=== PATIENT | male | born 1965 | race Two or more races ===

== ENCOUNTER 2023-06-02 11:51 | Inpatient (IN) | payer MEDICAID, OTHER ==
[~2023-06-02] VITALS: Ht 175.3 cm; Wt 116.0 kg
[2023-06-02] MEDS ORDERED: KETOROLAC TROMETH 60MG/2ML VIAL IM ONE (12:30)
[2023-06-02] MEDS ORDERED: TAMSULOSIN HYDROCHLORIDE 0.4 MG CAP PO ONE ×2 (12:30→15:00)
[2023-06-02] MEDS ORDERED: PROCHLORPERAZINE EDISYLATE 5 MG/ML 2ML VIAL IM ONE (12:30)
[2023-06-02 13:14] LABS: Basophils # (auto) 0 10 ^3/uL (0-0.2); Basophils % (auto) 0.3 % (0.0-2.0); Eosinophils # (auto) 0 10 ^3/uL (0-0.8); Eosinophils % (auto) 0.2 % (0.0-7.0); Hematocrit 37.5 % (41.0-53.0); Hemoglobin 12.5 g/dL (13.5-17.5); Lymphocytes # (auto) 0.7 10 ^3/uL (0.4-5.4); Lymphocytes % (auto) 8.3 % (10.0-50.0); Mean Corpuscular Hemoglobin 30.8 pg (28.0-32.0); Mean Corpuscular Hgb Conc. 33.2 g/dL (32.0-36.0); Mean Corpuscular Volume 92.8 fL (80.0-100.0); Monocytes # (auto) 0.6 10 ^3/uL (0-1.3); Monocytes % (auto) 7.4 % (0.0-12.0); Neutrophils % (auto) 83.8 % (37.0-80.0); Red Blood Cells 4.05 10^6/uL (4.5-5.90); Red Cell Distribution Width 14.7 % (11.8-14.3); White Blood Cell 8.3 10^3/uL (4.4-10.8)
[2023-06-02 13:26] LABS: Alanine Aminotransferase 47 U/L (7-40); Alkaline Phosphatase 155 U/L (46-116); Calcium 8.6 mg/dL (8.7-10.4); Carbon Dioxide 26 mmol/L (20-30); Chloride 107 mmol/L (98-107); Glucose 116 mg/dL (74-106); Lipase 31 U/L (12-53); Potassium 4.5 mmol/L (3.5-5.1); Sodium 139 mmol/L (136-145)
[2023-06-02 13:27] LABS: Albumin 3.8 g/dL (3.2-4.8); Anion Gap 6 (5-15); Aspartate Aminotransferase 30 U/L (13-40); BUN/Creatinine Ratio 11.6 (10.0-20.0); Bilirubin, Total 1.1 mg/dL (0.2-1.0); Blood Urea Nitrogen 20 mg/dL (9-23); Total Protein 6.2 g/dL (5.7-8.2)
[2023-06-02 16:22] VITALS: PULSE 85; RESP 22; O2SAT 100
[2023-06-02] MEDS ORDERED: SODIUM CHLORIDE 0.9% 1,000 ML IV ONE (17:00)
[2023-06-02] MEDS ORDERED: ASPirin 81 mg TAB PO ONE (17:00)
[2023-06-02] MEDS ORDERED: ACETAMINOPHEN 325 MG TAB PO PRN (18:30)
[2023-06-02] MEDS ORDERED: ONDANSETRON HCL 4 MG/2 ML VIAL IV PRN (18:30)
[2023-06-02] MEDS ORDERED: ALBUTEROL SULF 2.5 MG/0.5ML(0.5%) NEB SOLN NEB PRN (19:00)
[2023-06-02] MEDS: SODIUM CHLORIDE 0.9% 1,000 ML IV SCH (19:15)
[2023-06-02 19:25] VITALS: O2SAT 98
[2023-06-02 19:30] VITALS: PULSE 80; RESP 14; O2SAT 97
[2023-06-02 19:42] LABS: Base Excess -2.9 mmol/L (-2.0-2.0)
[2023-06-02 19:47] VITALS: BP 134/92; PULSE 83; RESP 18; TEMP 97.7; O2SAT 98
[2023-06-02 20:09] LABS: Triglycerides 90 mg/dL (< 150)
[2023-06-02 20:10] LABS: LDL Cholesterol 54 mg/dL (< 100)
[2023-06-02 20:11] LABS: Cholesterol 103 mg/dL (< 200); HDL Cholesterol 40 mg/dL (40-59)
[2023-06-02] MEDS ORDERED: MANNITOL FTV 25% 12.5 GM/50 ML 50 ML IV ONE (21:00)
[2023-06-03] VITALS (8 sets, daily range): BP systolic 113–125; BP diastolic 71–91; PULSE 72–98; RESP 16–24; TEMP 36.8; O2SAT 94–99
[2023-06-03 04:00] LABS: Urine Bacteria NONE SEEN /hpf (None Seen); Urine Blood Negative /uL (Negative); Urine Clarity Clear (Clear); Urine Color Yellow (Yellow); Urine Mucus FEW (None Seen); Urine Protein, UAD 1+ (Negative); Urine Specific Gravity 1.035 (1.001-1.035); Urine Urobilinogen Normal (Negative); Urine WBC 1 /hpf (0 - 3); Urine pH 5.5 (5.0-8.0)
[2023-06-03] MEDS: HYDROcodone-ACET 7.5/325MG TAB PO PRN ×3 (04:11→16:28)
[2023-06-03 04:18] LABS: Amphetamine Screen, Urine Pos (NEGATIVE); Benzodiazephine Screen, Urine Neg (NEGATIVE)
[2023-06-03 04:19] LABS: Barbiturate Scree,Urine Neg (NEGATIVE); Cannabinoid Screen, Urine Neg (NEGATIVE); Cocaine Screen, Urine Neg (NEGATIVE); Opiate Scree,Urine Neg (NEGATIVE); Phencyclidine Screen, Urine Neg (NEGATIVE)
[2023-06-03] MEDS: SODIUM CHLORIDE 0.9% 1,000 ML IV SCH ×2 (04:51→14:30)
[2023-06-03 05:13] LABS: Basophils # (auto) 0 10 ^3/uL (0-0.2); Basophils % (auto) 0.4 % (0.0-2.0); Eosinophils # (auto) 0.1 10 ^3/uL (0-0.8); Eosinophils % (auto) 0.9 % (0.0-7.0); Hematocrit 35.7 % (41.0-53.0); Hemoglobin 11.9 g/dL (13.5-17.5); Lymphocytes # (auto) 0.7 10 ^3/uL (0.4-5.4); Lymphocytes % (auto) 8.8 % (10.0-50.0); Mean Corpuscular Hemoglobin 30.9 pg (28.0-32.0); Mean Corpuscular Hgb Conc. 33.4 g/dL (32.0-36.0); Mean Corpuscular Volume 92.5 fL (80.0-100.0); Monocytes # (auto) 0.8 10 ^3/uL (0-1.3); Monocytes % (auto) 10.1 % (0.0-12.0); Neutrophils # (auto) 6.4 10 ^3/uL (1.6-8.6); Neutrophils % (auto) 79.8 % (37.0-80.0); Red Blood Cells 3.86 10^6/uL (4.5-5.90); Red Cell Distribution Width 14.4 % (11.8-14.3)
[2023-06-03 05:26] LABS: Alanine Aminotransferase 41 U/L (7-40); Albumin 3.7 g/dL (3.2-4.8); Alkaline Phosphatase 141 U/L (46-116); Anion Gap 2 (5-15); Aspartate Aminotransferase 26 U/L (13-40); BUN/Creatinine Ratio 10.3 (10.0-20.0); Blood Urea Nitrogen 17 mg/dL (9-23); Calcium 8.6 mg/dL (8.7-10.4); Carbon Dioxide 28 mmol/L (20-30); Chloride 106 mmol/L (98-107); Glucose 116 mg/dL (74-106); Potassium 4.5 mmol/L (3.5-5.1); Sodium 136 mmol/L (136-145)
[2023-06-03 05:27] LABS: Total Protein 6.2 g/dL (5.7-8.2)
[2023-06-03] MEDS: ENOXAPARIN SOD 40 MG/0.4 ML SYRINGE SC SCH (10:22)
[2023-06-03 11:42] LABS: Alanine Aminotransferase 41 U/L (7-40); Alkaline Phosphatase 142 U/L (46-116); Anion Gap 3 (5-15); Aspartate Aminotransferase 25 U/L (13-40); Blood Urea Nitrogen 17 mg/dL (9-23); Calcium 8.5 mg/dL (8.7-10.4); Carbon Dioxide 28 mmol/L (20-30); Chloride 106 mmol/L (98-107); Glucose 144 mg/dL (74-106); Potassium 4.9 mmol/L (3.5-5.1); Sodium 137 mmol/L (136-145)
[2023-06-03 11:43] LABS: Albumin 3.7 g/dL (3.2-4.8); Total Protein 6.1 g/dL (5.7-8.2)
[2023-06-03] MEDS ORDERED: ASPI325T4 PO (14:06)
[2023-06-03] MEDS ORDERED: CLOP75TA70 PO (14:21)
[2023-06-03] MEDS ORDERED: ATOR20TA50 PO (14:21)
[2023-06-03] MEDS ORDERED: LISI10TA34 PO (14:21)
[2023-06-03] MEDS ORDERED: POTA-220 PO (14:21)
[2023-06-03] MEDS ORDERED: FURO1TAB31 PO (14:21)
[2023-06-03] MEDS ORDERED: METO25TA93 PO (14:21)
[2023-06-03] MEDS ORDERED: MANNITOL FTV 25% 12.5 GM/50 ML 50 ML IV ONE (14:45)
[2023-06-03] MEDS: TAMSULOSIN HYDROCHLORIDE 0.4 MG CAP PO SCH (18:18)
[2023-06-04] VITALS (9 sets, daily range): BP systolic 126–148; BP diastolic 84–103; PULSE 64–87; RESP 16–20; TEMP 97.2–98.4; O2SAT 92–99
[2023-06-04] MEDS: SODIUM CHLORIDE 0.9% 1,000 ML IV SCH ×3 (00:30→20:30)
[2023-06-04] MEDS: HYDROcodone-ACET 7.5/325MG TAB PO PRN (04:46)
[2023-06-04] MEDS: FUROSEMIDE 40 MG/4 ML VIAL IV SCH ×2 (07:16→18:17)
[2023-06-04] MEDS: PIPERACILLIN-TAZOB 3.375GM 100 ML IV SCH ×2 (07:33→15:46)
[2023-06-04] MEDS: ENOXAPARIN SOD 40 MG/0.4 ML SYRINGE SC SCH (08:54)
[2023-06-04 15:45] LABS: Chloride 105 mmol/L (98-107); Potassium 4.2 mmol/L (3.5-5.1); Sodium 139 mmol/L (136-145)
[2023-06-04 15:46] LABS: Anion Gap 5 (5-15); Calcium 8.4 mg/dL (8.5-10.1); Carbon Dioxide 29 mmol/L (20-30)
[2023-06-04 15:51] LABS: BUN/Creatinine Ratio 7.7 (10.0-20.0); Blood Urea Nitrogen 9 mg/dL (9-23); Glucose 95 mg/dL (74-106)
[2023-06-04] MEDS: TAMSULOSIN HYDROCHLORIDE 0.4 MG CAP PO SCH (18:17)
[2023-06-05] VITALS (8 sets, daily range): BP systolic 104–150; BP diastolic 57–113; PULSE 78–86; RESP 16–18; TEMP 98–99.3; O2SAT 90–95
[2023-06-05] MEDS: PIPERACILLIN-TAZOB 3.375GM 100 ML IV SCH ×3 (01:54→16:00)
[2023-06-05] MEDS: FUROSEMIDE 40 MG/4 ML VIAL IV SCH ×2 (07:01→18:00)
[2023-06-05] MEDS: ENOXAPARIN SOD 40 MG/0.4 ML SYRINGE SC SCH (10:30)
[2023-06-05] MEDS: TAMSULOSIN HYDROCHLORIDE 0.4 MG CAP PO SCH (18:00)
[2023-06-06] MEDS: PIPERACILLIN-TAZOB 3.375GM 100 ML IV SCH
== END 2023-06-06 01:09 | disposition home or self-care (01) | DRG 469 ==
LOC: ER 11:51 → EDBD 11:51 → OVERFLOW 18:29 → EAST 06-03 08:30
PROVIDERS: ADMIT Internal Medicine; ATTEND Student in an Organized Health Care Education/Training Program
DX: N17.0 Acute kidney failure with tubular necrosis (principal); J96.01 Acute respiratory failure with hypoxia; I21.A1 Myocardial infarction type 2; G92.9 Unspecified toxic encephalopathy; I50.43 Acute on chronic combined systolic (congestive) and diastolic (congestive) heart failure; D64.9 Anemia, unspecified; N13.6 Pyonephrosis; I24.9 Acute ischemic heart disease, unspecified; E86.0 Dehydration; I11.0 Hypertensive heart disease with heart failure; F15.10 Other stimulant abuse, uncomplicated; Z87.442 Personal history of urinary calculi; Z59.00 Homelessness unspecified
CPT/HCPCS: 36415; 36600; 71045; 74018; 74176; 76775; 80048; 80053; 80061; 80307; 80320; 81001; 82140; 82805; 82962; 83690; 83880; 83930; 84443; 84484; 85025; 93005; 94640; 97163; G0378; J1885; J2543

== ENCOUNTER 2023-06-14 22:02 | Inpatient (IN) | payer MEDICAID ==
[~2023-06-14] VITALS: Ht 175.3 cm; Wt 111.1 kg
[~2023-06-14 22:02] MED LIST: ASPI325T4 PO; ATOR20TA50 PO; CLOP75TA70 PO; FURO1TAB31 PO; LISI10TA34 PO; METO25TA93 PO; POTA-220 PO
[2023-06-14] MEDS ORDERED: ONDANSETRON HCL 4 MG/2 ML VIAL IV ONE (22:45)
[2023-06-14 22:54] LABS: Basophils # (auto) 0.1 10 ^3/uL (0-0.2); Basophils % (auto) 0.7 % (0.0-2.0); Eosinophils # (auto) 0.2 10 ^3/uL (0-0.8); Eosinophils % (auto) 2.2 % (0.0-7.0); Hematocrit 37.9 % (41.0-53.0); Hemoglobin 12.3 g/dL (13.5-17.5); Lymphocytes # (auto) 1.9 10 ^3/uL (0.4-5.4); Lymphocytes % (auto) 23.7 % (10.0-50.0); Mean Corpuscular Hgb Conc. 32.6 g/dL (32.0-36.0); Monocytes # (auto) 0.6 10 ^3/uL (0-1.3); Monocytes % (auto) 7.5 % (0.0-12.0); Neutrophils # (auto) 5.2 10 ^3/uL (1.6-8.6); Neutrophils % (auto) 65.9 % (37.0-80.0); Nucleated Red Blood Cells % 0.1 %; Red Blood Cells 4.12 10^6/uL (4.5-5.90); Red Cell Distribution Width 14.6 % (11.8-14.3); White Blood Cell 7.8 10^3/uL (4.4-10.8)
[2023-06-14 23:09] LABS: Alanine Aminotransferase 22 U/L (7-40); Albumin 3.7 g/dL (3.2-4.8); Alkaline Phosphatase 138 U/L (46-116); Anion Gap 7 (5-15); Aspartate Aminotransferase 18 U/L (13-40); BUN/Creatinine Ratio 16.2 (10.0-20.0); Bilirubin, Total 0.3 mg/dL (0.2-1.0); Blood Urea Nitrogen 17 mg/dL (9-23); Carbon Dioxide 23 mmol/L (20-30); Chloride 111 mmol/L (98-107); Glucose 117 mg/dL (74-106); Magnesium 1.8 mg/dL (1.6-2.6); Potassium 4.1 mmol/L (3.5-5.1); Sodium 141 mmol/L (136-145); Total Protein 6.4 g/dL (5.7-8.2)
[2023-06-14 23:36] LABS: INR 1.15 (0.9-1.15)
[2023-06-14 23:40] VITALS: RESP 17; O2SAT 97
[2023-06-15] MEDS ORDERED: NITROGLYCERIN 2% OINT 1GM PKG TD STA (00:07)
[2023-06-15] MEDS ORDERED: ENOXAPARIN SOD 100 MG/1 ML SYRINGE SC ONE (00:15)
[2023-06-15] MEDS ORDERED: PANTOPRAZOLE 40 MG/10 ML VIAL INJ IV ONE (00:15)
[2023-06-15] MEDS ORDERED: FUROSEMIDE 40 MG/4 ML VIAL IV ONE (00:15)
[2023-06-15] MEDS ORDERED: ASPirin 81 mg TAB PO ONE (00:15)
[2023-06-15] MEDS ORDERED: NITROGLYCERIN 0.2MG/HR TOPICAL PATCH TD ONE (00:15)
[2023-06-15 00:47] LABS: INR 1.14 (0.9-1.15); Partial Thromboplastin Time 29.9 SEC (24.5-34.5); Prothrombin Time 11.9 sec (9.3-11.8)
[2023-06-15 01:43] LABS: Urine Bacteria NONE SEEN /hpf (None Seen); Urine Blood Negative /uL (Negative); Urine Clarity Clear (Clear); Urine Color Colorless (Yellow); Urine Hyaline Cast FEW /lpf (0 - 2); Urine Mucus FEW (None Seen); Urine Protein, UAD 1+ (Negative); Urine Specific Gravity 1.012 (1.001-1.035); Urine Urobilinogen Normal (Negative); Urine WBC 1 /hpf (0 - 3); Urine pH 5.5 (5.0-8.0)
[2023-06-15 01:47] LABS: Amphetamine Screen, Urine Pos (NEGATIVE); Barbiturate Scree,Urine Neg (NEGATIVE); Benzodiazephine Screen, Urine Neg (NEGATIVE)
[2023-06-15 01:48] LABS: Cocaine Screen, Urine Neg (NEGATIVE); Opiate Scree,Urine Neg (NEGATIVE); Phencyclidine Screen, Urine Neg (NEGATIVE)
[2023-06-15] MEDS ORDERED: ONDANSETRON HCL 4 MG/2 ML VIAL IV PRN (03:45)
[2023-06-15] MEDS ORDERED: ACETAMINOPHEN 325 MG TAB PO PRN (03:45)
[2023-06-15] MEDS ORDERED: DOCUSATE SOD 100 MG CAP PO PRN (03:45)
[2023-06-15] MEDS ORDERED: HYDROcodone-ACET 5/325MG TAB PO PRN (03:45)
[2023-06-15] MEDS ORDERED: hydrALAZINE HCL 20 MG/ML VL IV PRN (03:45)
[2023-06-15 04:01] LABS: Cannabinoid Screen, Urine Neg (NEGATIVE)
[2023-06-15] MEDS ORDERED: NITROGLYCERIN 0.4 MG SL TAB SL PRN (04:15)
[2023-06-15] MEDS ORDERED: MORPHINE SULFATE INJ 2 MG/ml SYRG IV PRN (04:15)
[2023-06-15 05:28] LABS: Basophils # (auto) 0 10 ^3/uL (0-0.2); Basophils % (auto) 0.7 % (0.0-2.0); Eosinophils # (auto) 0.1 10 ^3/uL (0-0.8); Eosinophils % (auto) 2.3 % (0.0-7.0); Hematocrit 37.7 % (41.0-53.0); Hemoglobin 12.4 g/dL (13.5-17.5); Lymphocytes # (auto) 1.7 10 ^3/uL (0.4-5.4); Lymphocytes % (auto) 28.9 % (10.0-50.0); Mean Corpuscular Hemoglobin 30.3 pg (28.0-32.0); Mean Corpuscular Hgb Conc. 32.9 g/dL (32.0-36.0); Monocytes # (auto) 0.5 10 ^3/uL (0-1.3); Monocytes % (auto) 8.3 % (0.0-12.0); Neutrophils # (auto) 3.6 10 ^3/uL (1.6-8.6); Neutrophils % (auto) 59.8 % (37.0-80.0); Red Cell Distribution Width 14.5 % (11.8-14.3)
[2023-06-15 05:52] LABS: Alanine Aminotransferase 26 U/L (7-40); Albumin 3.7 g/dL (3.2-4.8); Alkaline Phosphatase 132 U/L (46-116); Anion Gap 8 (5-15); Aspartate Aminotransferase 23 U/L (13-40); Blood Urea Nitrogen 16 mg/dL (9-23); Carbon Dioxide 27 mmol/L (20-30); Chloride 106 mmol/L (98-107); Glucose 103 mg/dL (74-106); Potassium 4.1 mmol/L (3.5-5.1); Sodium 141 mmol/L (136-145)
[2023-06-15 05:53] LABS: Bilirubin, Total 0.6 mg/dL (0.2-1.0); Total Protein 6.5 g/dL (5.7-8.2)
[2023-06-15] MEDS: SODIUM CHLOR 0.9% PF (SALINE LOCK) 10ML VIAL/SYR IV SCH ×3 (05:54→22:27)
[2023-06-15] MEDS ORDERED: ENOXAPARIN SOD 100 MG/1 ML SYRINGE SC SCH (06:00)
[2023-06-15 08:00] VITALS: RESP 20; O2SAT 97
[2023-06-15] MEDS: FUROSEMIDE 40 MG/4 ML VIAL IV SCH (10:13)
[2023-06-15] MEDS: FAMOTIDINE (10MG/ML) 2ML VL IV SCH ×2 (10:14→22:27)
[2023-06-15] MEDS: ASPirin 81 mg TAB PO SCH (10:15)
[2023-06-15] MEDS: CARVEDILOL 3.125 MG TAB PO SCH ×2 (10:16→22:27)
[2023-06-15] MEDS: ENOXAPARIN SOD 100 MG/1 ML SYRINGE SC SCH ×2 (12:26→23:17)
[2023-06-15] MEDS ORDERED: AZITHROMYCIN 500MG/ 250ML 250 ML IV ONE (14:30)
[2023-06-15 14:42] LABS: Triglycerides 79 mg/dL (< 150)
[2023-06-15 14:43] LABS: LDL Cholesterol 60 mg/dL (< 100)
[2023-06-15 14:44] LABS: Cholesterol 98 mg/dL (< 200); HDL Cholesterol 33 mg/dL (40-59)
[2023-06-15 19:25] VITALS: RESP 22; O2SAT 97
[2023-06-15] MEDS ORDERED: IOHEXOL 350 MG/ML 100ML IJ ONE (20:15)
[2023-06-15] MEDS: ATORVASTATIN 20 MG TAB PO SCH (22:29)
[2023-06-15 22:30] VITALS: BP 120/90; PULSE 82; RESP 18; TEMP 98.1; O2SAT 96
[2023-06-15] MEDS ORDERED: EMPA1TAB PO (22:32)
[2023-06-16] VITALS (10 sets, daily range): BP systolic 101–124; BP diastolic 58–95; PULSE 56–84; RESP 16–20; TEMP 97.4–98.4; O2SAT 96–99
[2023-06-16] MEDS ORDERED: ENOXAPARIN SOD 100 MG/1 ML SYRINGE SC SCH
[2023-06-16] MEDS: SODIUM CHLOR 0.9% PF (SALINE LOCK) 10ML VIAL/SYR IV SCH ×3 (05:52→21:27)
[2023-06-16 06:39] LABS: Basophils # (auto) 0 10 ^3/uL (0-0.2); Basophils % (auto) 0.7 % (0.0-2.0); Eosinophils # (auto) 0.1 10 ^3/uL (0-0.8); Eosinophils % (auto) 2.5 % (0.0-7.0); Hematocrit 38.2 % (41.0-53.0); Hemoglobin 12.5 g/dL (13.5-17.5); Lymphocytes # (auto) 1.4 10 ^3/uL (0.4-5.4); Lymphocytes % (auto) 25.3 % (10.0-50.0); Mean Corpuscular Hemoglobin 30.1 pg (28.0-32.0); Mean Corpuscular Hgb Conc. 32.8 g/dL (32.0-36.0); Mean Corpuscular Volume 91.9 fL (80.0-100.0); Monocytes # (auto) 0.4 10 ^3/uL (0-1.3); Monocytes % (auto) 7.8 % (0.0-12.0); Neutrophils # (auto) 3.5 10 ^3/uL (1.6-8.6); Neutrophils % (auto) 63.7 % (37.0-80.0); Nucleated Red Blood Cells % 0.1 %; Red Blood Cells 4.16 10^6/uL (4.5-5.90); Red Cell Distribution Width 14.3 % (11.8-14.3); White Blood Cell 5.5 10^3/uL (4.4-10.8)
[2023-06-16 07:05] LABS: Alanine Aminotransferase 20 U/L (7-40); Albumin 3.6 g/dL (3.2-4.8); Alkaline Phosphatase 129 U/L (46-116); Anion Gap 7 (5-15); Aspartate Aminotransferase 14 U/L (13-40); BUN/Creatinine Ratio 16.1 (10.0-20.0); Bilirubin, Total 0.3 mg/dL (0.2-1.0); Blood Urea Nitrogen 19 mg/dL (9-23); Calcium 8.7 mg/dL (8.7-10.4); Carbon Dioxide 28 mmol/L (20-30); Chloride 105 mmol/L (98-107); Glucose 128 mg/dL (74-106); Potassium 3.9 mmol/L (3.5-5.1); Sodium 140 mmol/L (136-145); Total Protein 6.4 g/dL (5.7-8.2)
[2023-06-16] MEDS: FUROSEMIDE 40 MG/4 ML VIAL IV SCH (11:21)
[2023-06-16] MEDS: FAMOTIDINE (10MG/ML) 2ML VL IV SCH ×2 (11:21→21:27)
[2023-06-16] MEDS: CARVEDILOL 3.125 MG TAB PO SCH ×2 (11:22→21:27)
[2023-06-16] MEDS: ASPirin 81 mg TAB PO SCH (11:22)
[2023-06-16] MEDS: AZITHROMYCIN 500MG/ 250ML 250 ML IV SCH (11:23)
[2023-06-16] MEDS: LISINOPRIL 10 MG TAB PO SCH (11:23)
[2023-06-16] MEDS: CLOPIDOGREL BISULFATE 75 MG TAB PO SCH (11:23)
[2023-06-16] MEDS: ENOXAPARIN SOD 100 MG/1 ML SYRINGE SC SCH (11:23)
[2023-06-16] MEDS: ATORVASTATIN 20 MG TAB PO SCH (21:26)
[2023-06-16] MEDS: IPRATROPIUM BROM 0.5 MG/2.5ML INH SOL NEB SCH (22:16)
[2023-06-17] VITALS (14 sets, daily range): BP systolic 107–132; BP diastolic 71–88; PULSE 64–87; RESP 15–22; TEMP 97.8–98.2; O2SAT 93–100
[2023-06-17 05:33] LABS: Basophils # (auto) 0 10 ^3/uL (0-0.2); Basophils % (auto) 0.5 % (0.0-2.0); Eosinophils # (auto) 0.1 10 ^3/uL (0-0.8); Eosinophils % (auto) 2.4 % (0.0-7.0); Hematocrit 38.9 % (41.0-53.0); Hemoglobin 12.7 g/dL (13.5-17.5); Lymphocytes # (auto) 1.1 10 ^3/uL (0.4-5.4); Lymphocytes % (auto) 22.6 % (10.0-50.0); Mean Corpuscular Hgb Conc. 32.7 g/dL (32.0-36.0); Mean Corpuscular Volume 91.7 fL (80.0-100.0); Monocytes # (auto) 0.4 10 ^3/uL (0-1.3); Monocytes % (auto) 8.5 % (0.0-12.0); Neutrophils # (auto) 3.2 10 ^3/uL (1.6-8.6); Nucleated Red Blood Cells % 0.1 %; Red Blood Cells 4.25 10^6/uL (4.5-5.90); Red Cell Distribution Width 14.1 % (11.8-14.3); White Blood Cell 4.8 10^3/uL (4.4-10.8)
[2023-06-17 05:45] LABS: Alanine Aminotransferase 16 U/L (7-40); Alkaline Phosphatase 108 U/L (46-116); Anion Gap 6 (5-15); BUN/Creatinine Ratio 13.9 (10.0-20.0); Blood Urea Nitrogen 17 mg/dL (9-23); Calcium 8.9 mg/dL (8.5-10.1); Carbon Dioxide 32 mmol/L (20-30); Chloride 105 mmol/L (98-107); Glucose 114 mg/dL (74-106); Potassium 3.9 mmol/L (3.5-5.1); Sodium 143 mmol/L (136-145)
[2023-06-17 05:46] LABS: Albumin 3.7 g/dL (3.2-4.8); Aspartate Aminotransferase 12 U/L (13-40); Bilirubin, Total 0.4 mg/dL (0.2-1.0)
[2023-06-17 05:47] LABS: Total Protein 6.5 g/dL (5.7-8.2)
[2023-06-17] MEDS: SODIUM CHLOR 0.9% PF (SALINE LOCK) 10ML VIAL/SYR IV SCH ×3 (06:02→21:27)
[2023-06-17] MEDS: EMPAGLIFLOZIN 10 MG TAB PO SCH (06:02)
[2023-06-17] MEDS: IPRATROPIUM BROM 0.5 MG/2.5ML INH SOL NEB SCH ×5 (06:12→22:17)
[2023-06-17 06:36] LABS: Magnesium 1.9 mg/dL (1.6-2.6)
[2023-06-17] MEDS ORDERED: OPTISON 3ml Vial for INJ IV ONE (10:51)
[2023-06-17] MEDS: FAMOTIDINE (10MG/ML) 2ML VL IV SCH ×2 (10:58→21:27)
[2023-06-17] MEDS: AZITHROMYCIN 500MG/ 250ML 250 ML IV SCH (10:59)
[2023-06-17] MEDS: ASPirin 81 mg TAB PO SCH (11:00)
[2023-06-17] MEDS: SPIRONOLACTONE 25 MG TAB PO SCH (11:00)
[2023-06-17] MEDS: CLOPIDOGREL BISULFATE 75 MG TAB PO SCH (11:00)
[2023-06-17] MEDS: CARVEDILOL 3.125 MG TAB PO SCH ×2 (11:00→21:28)
[2023-06-17] MEDS: FUROSEMIDE 40 MG/4 ML VIAL IV SCH (11:01)
[2023-06-17] MEDS: LISINOPRIL 10 MG TAB PO SCH (11:01)
[2023-06-17] MEDS: ENOXAPARIN SOD 40 MG/0.4 ML SYRINGE SC SCH (11:02)
[2023-06-17] MEDS ORDERED: methylPREDNISolone SOD SUCC 40 MG/ML VL IV ONE (11:15)
[2023-06-17 12:03] LABS: Hepatitis B Surface Antigen Negative (Negative)
[2023-06-17 12:23] LABS: Hepatitis A Ab IgM Negative
[2023-06-17 12:25] LABS: Hepatitis B Core IgM Negative
[2023-06-17 12:26] LABS: Hepatitis C Antibody Negative (Negative)
[2023-06-17 12:45] LABS: Free T3 3.46 pg/mL (2.3-4.2)
[2023-06-17 12:46] LABS: Free T4 (Free Thyroxine) 0.88 ng/dL (0.89-1.76)
[2023-06-17] MEDS: methylPREDNISolone SOD SUCC 40 MG/ML VL IV SCH (18:17)
[2023-06-17] MEDS: ATORVASTATIN 20 MG TAB PO SCH (21:28)
[2023-06-18] VITALS (12 sets, daily range): BP systolic 102–136; BP diastolic 63–75; PULSE 63–86; RESP 16–20; TEMP 98–98.2; O2SAT 90–98
[2023-06-18 06:06] LABS: RPR Non Reactive (Non Reactive)
[2023-06-18 06:11] LABS: Basophils # (auto) 0 10 ^3/uL (0-0.2); Basophils % (auto) 0.1 % (0.0-2.0); Eosinophils # (auto) 0 10 ^3/uL (0-0.8); Hematocrit 41.4 % (41.0-53.0); Hemoglobin 14.2 g/dL (13.5-17.5); Lymphocytes # (auto) 0.6 10 ^3/uL (0.4-5.4); Lymphocytes % (auto) 7.9 % (10.0-50.0); Mean Corpuscular Hgb Conc. 34.2 g/dL (32.0-36.0); Mean Corpuscular Volume 90.6 fL (80.0-100.0); Monocytes # (auto) 0.1 10 ^3/uL (0-1.3); Monocytes % (auto) 0.9 % (0.0-12.0); Neutrophils # (auto) 7.5 10 ^3/uL (1.6-8.6); Neutrophils % (auto) 91.1 % (37.0-80.0); Red Blood Cells 4.57 10^6/uL (4.5-5.90); Red Cell Distribution Width 13.7 % (11.8-14.3); White Blood Cell 8.2 10^3/uL (4.4-10.8)
[2023-06-18 06:14] LABS: Alanine Aminotransferase 13 U/L (7-40); Alkaline Phosphatase 119 U/L (46-116); BUN/Creatinine Ratio 12.5 (10.0-20.0); Blood Urea Nitrogen 16 mg/dL (9-23); Calcium 9.2 mg/dL (8.7-10.4); Chloride 103 mmol/L (98-107); Glucose 170 mg/dL (74-106); Sodium 139 mmol/L (136-145)
[2023-06-18 06:15] LABS: Albumin 3.9 g/dL (3.2-4.8); Aspartate Aminotransferase 10 U/L (13-40); Bilirubin, Total 0.5 mg/dL (0.2-1.0)
[2023-06-18] MEDS: EMPAGLIFLOZIN 10 MG TAB PO SCH (06:25)
[2023-06-18] MEDS: methylPREDNISolone SOD SUCC 40 MG/ML VL IV SCH ×2 (06:25→18:59)
[2023-06-18] MEDS: SODIUM CHLOR 0.9% PF (SALINE LOCK) 10ML VIAL/SYR IV SCH ×2 (06:25→14:00)
[2023-06-18 07:03] LABS: Anion Gap 8 (5-15); Carbon Dioxide 28 mmol/L (20-30)
[2023-06-18] MEDS: IPRATROPIUM BROM 0.5 MG/2.5ML INH SOL NEB SCH ×4 (07:18→18:51)
[2023-06-18] MEDS ORDERED: FUROSEMIDE 40 MG TAB PO SCH ×2 (10:00→18:00)
[2023-06-18] MEDS: AZITHROMYCIN 500MG/ 250ML 250 ML IV SCH (11:15)
[2023-06-18] MEDS: ASPirin 81 mg TAB PO SCH (11:16)
[2023-06-18] MEDS: CARVEDILOL 3.125 MG TAB PO SCH (11:16)
[2023-06-18] MEDS: CLOPIDOGREL BISULFATE 75 MG TAB PO SCH (11:17)
[2023-06-18] MEDS: SPIRONOLACTONE 25 MG TAB PO SCH (11:17)
[2023-06-18] MEDS: FAMOTIDINE (10MG/ML) 2ML VL IV SCH (11:17)
[2023-06-18] MEDS: ENOXAPARIN SOD 40 MG/0.4 ML SYRINGE SC SCH (11:24)
[2023-06-18] MEDS ORDERED: AZITTAB PO (13:05)
[2023-06-18] MEDS ORDERED: SPIR25TA PO (13:05)
[2023-06-18] MEDS ORDERED: METH4PAK PO (13:05)
[2023-06-18] MEDS ORDERED: DOXYCYCLINE 100 MG TAB/CAP PO SCH (22:00)
[2023-06-18] MEDS ORDERED: SACUBITRIL-VALSARTAN 24mg/26mg TAB PO SCH (23:00)
== END 2023-06-18 22:00 | disposition home or self-care (01) | DRG 194 ==
LOC: ER 22:02 → EDBD 22:02 → TELE 06-15 04:05 → TELE-CENTR 06-15 22:08 → CENTRAL 06-18 10:04
PROVIDERS: ADMIT Internal Medicine Geriatric Medicine; ATTEND Internal Medicine Geriatric Medicine
DX: I11.0 Hypertensive heart disease with heart failure (principal); I21.A1 Myocardial infarction type 2; I27.20 Pulmonary hypertension, unspecified; J18.9 Pneumonia, unspecified organism; J44.0 Chronic obstructive pulmonary disease with (acute) lower respiratory infection; I50.23 Acute on chronic systolic (congestive) heart failure; I42.0 Dilated cardiomyopathy; E66.9 Obesity, unspecified; F15.90 Other stimulant use, unspecified, uncomplicated; I08.1 Rheumatic disorders of both mitral and tricuspid valves; F12.90 Cannabis use, unspecified, uncomplicated; I25.10 Atherosclerotic heart disease of native coronary artery without angina pectoris; Z59.00 Homelessness unspecified; Z68.36 Body mass index [BMI] 36.0-36.9, adult; Z79.02 Long term (current) use of antithrombotics/antiplatelets; Z82.49 Family history of ischemic heart disease and other diseases of the circulatory system; Z91.199 Patient's noncompliance with other medical treatment and regimen due to unspecified reason; Z98.61 Coronary angioplasty status; Z72.0 Tobacco use; Z71.6 Tobacco abuse counseling
CPT/HCPCS: 36415; 71045; 80053; 80061; 80074; 80307; 80320; 81001; 82306; 82607; 83036; 83735; 83880; 84439; 84443; 84481; 84484; 85025; 85379; 85610; 85730; 86592; 86703; 87040; 87070; 87081; 87205; 93005; 93306; 94640; 96365; 96372; 96375; C9113; G0378; J2405; J3490; Q9956

== ENCOUNTER 2024-06-07 08:53 | Inpatient (IN) | payer MEDICAID ==
[~2024-06-07] VITALS: Ht 175.3 cm; Wt 95.8 kg
[2024-06-07] VITALS (7 sets, daily range): BP systolic 137–144; BP diastolic 79–98; PULSE 58–89; RESP 18–22; TEMP 97.7; O2SAT 92–98
[~2024-06-07 08:53] MED LIST changes: -ASPI325T4 PO; +ASPI325T6 PO; +AZITTAB PO; +EMPA1TAB PO; +METH4PAK PO; +SPIR25TA PO
[2024-06-07] MEDS: ALBUTEROL SULF 2.5 MG/0.5ML(0.5%) NEB SOLN NEB ONE (09:30)
[2024-06-07] MEDS: IPRATROPIUM BROM 0.5 MG/2.5ML INH SOL NEB ONE (09:30)
[2024-06-07] MEDS: methylPREDNISolone SOD SUCC 125 MG/2 ML VL IV ONE (09:33)
[2024-06-07] MEDS: FUROSEMIDE 40 MG/4 ML VIAL IV ONE (09:33)
[2024-06-07 09:47] LABS: Basophils # (auto) 0 10 ^3/uL (0-0.2); Basophils % (auto) 0.4 % (0.0-2.0); Eosinophils # (auto) 0.1 10 ^3/uL (0-0.8); Eosinophils % (auto) 1.1 % (0.0-7.0); Hematocrit 40.4 % (41.0-53.0); Hemoglobin 13.5 g/dL (13.5-17.5); Lymphocytes # (auto) 1.1 10 ^3/uL (0.4-5.4); Lymphocytes % (auto) 14.9 % (10.0-50.0); Mean Corpuscular Hemoglobin 31.8 pg (28.0-32.0); Mean Corpuscular Hgb Conc. 33.4 g/dL (32.0-36.0); Mean Corpuscular Volume 95.1 fL (80.0-100.0); Monocytes # (auto) 0.6 10 ^3/uL (0-1.3); Monocytes % (auto) 7.8 % (0.0-12.0); Neutrophils # (auto) 5.6 10 ^3/uL (1.6-8.6); Neutrophils % (auto) 75.8 % (37.0-80.0); Platelet Count (auto) 182 10^3/uL (140-450); Red Blood Cells 4.25 10^6/uL (4.5-5.90); Red Cell Distribution Width 14.2 % (11.8-14.3); White Blood Cell 7.4 10^3/uL (4.4-10.8)
[2024-06-07 09:53] LABS: Chloride 108 mmol/L (98-107); Potassium 4.5 mmol/L (3.5-5.1); Sodium 141 mmol/L (136-145)
[2024-06-07 09:54] LABS: Anion Gap 6 (5-15); Carbon Dioxide 27 mmol/L (20-31)
[2024-06-07 09:59] LABS: Blood Urea Nitrogen 10 mg/dL (9-23); Glucose 109 mg/dL (74-106)
[2024-06-07 11:01] LABS: Amphetamine Screen, Urine Pos (NEGATIVE); Barbiturate Scree,Urine Neg (NEGATIVE); Benzodiazephine Screen, Urine Neg (NEGATIVE); Cannabinoid Screen, Urine Neg (NEGATIVE); Cocaine Screen, Urine Neg (NEGATIVE); Opiate Scree,Urine Neg (NEGATIVE); Phencyclidine Screen, Urine Neg (NEGATIVE)
[2024-06-07] MEDS ORDERED: HYDROcodone-ACET 5/325MG TAB PO PRN (15:30)
[2024-06-07] MEDS ORDERED: MORPHINE SULFATE INJ 2 MG/ml SYRG IV PRN (15:30)
[2024-06-07] MEDS ORDERED: ACETAMINOPHEN 325 MG TAB PO PRN (15:30)
[2024-06-07] MEDS: LISINOPRIL 20 MG TAB PO ONE (16:07)
[2024-06-07] MEDS: METOPROLOL SUCCINATE XL 50 MG TAB PO ONE (16:07)
[2024-06-07 16:51] LABS: Triglycerides 83 mg/dL (< 150)
[2024-06-07 16:52] LABS: LDL Cholesterol 75 mg/dL (< 100)
[2024-06-07 16:54] LABS: Cholesterol 130 mg/dL (< 200); HDL Cholesterol 48 mg/dL (40-59)
[2024-06-07] MEDS: IOHEXOL 350 MG/ML 100ML IJ ONE (16:54)
[2024-06-07] MEDS: NICOTINE 7MG/24HR TOPICAL PATCH TD ONE (16:54)
[2024-06-07] MEDS: FUROSEMIDE 40 MG/4 ML VIAL IV SCH (18:04)
[2024-06-08] VITALS (11 sets, daily range): BP systolic 120–144; BP diastolic 74–97; PULSE 61–86; RESP 16–19; TEMP 97.4–98.7; O2SAT 95–100
[2024-06-08 07:45] LABS: Basophils # (auto) 0 10 ^3/uL (0-0.2); Basophils % (auto) 0.1 % (0.0-2.0); Eosinophils # (auto) 0 10 ^3/uL (0-0.8); Hematocrit 39.5 % (41.0-53.0); Hemoglobin 13.4 g/dL (13.5-17.5); Lymphocytes # (auto) 0.9 10 ^3/uL (0.4-5.4); Lymphocytes % (auto) 8.6 % (10.0-50.0); Mean Corpuscular Volume 94.2 fL (80.0-100.0); Monocytes # (auto) 0.6 10 ^3/uL (0-1.3); Monocytes % (auto) 5.4 % (0.0-12.0); Neutrophils # (auto) 9.2 10 ^3/uL (1.6-8.6); Neutrophils % (auto) 85.9 % (37.0-80.0); Platelet Count (auto) 198 10^3/uL (140-450); Red Cell Distribution Width 13.8 % (11.8-14.3); White Blood Cell 10.7 10^3/uL (4.4-10.8)
[2024-06-08 08:01] LABS: Alanine Aminotransferase 20 U/L (7-40); Alkaline Phosphatase 117 U/L (46-116); Anion Gap 9 (5-15); BUN/Creatinine Ratio 21.2 (10.0-20.0); Calcium 9.2 mg/dL (8.7-10.4); Carbon Dioxide 29 mmol/L (20-31); Chloride 103 mmol/L (98-107); Glucose 103 mg/dL (74-106); Potassium 4.1 mmol/L (3.5-5.1); Sodium 141 mmol/L (136-145)
[2024-06-08 08:02] LABS: Albumin 3.7 g/dL (3.2-4.8); Aspartate Aminotransferase 16 U/L (13-40); Total Protein 5.9 g/dL (5.7-8.2)
[2024-06-08 08:05] LABS: Blood Urea Nitrogen 25 mg/dL (9-23)
[2024-06-08 08:08] LABS: Bilirubin, Total 0.7 mg/dL (0.2-1.0)
[2024-06-08] MEDS: ALBUTEROL SULF 2.5 MG/0.5ML(0.5%) NEB SOLN NEB PRN (09:29)
[2024-06-08] MEDS: POTASSIUM CHL 20 Meq TABLET PO SCH (10:03)
[2024-06-08] MEDS: METOPROLOL SUCCINATE XL 50 MG TAB PO SCH (10:03)
[2024-06-08] MEDS: EMPAGLIFLOZIN 10 MG TAB PO SCH (10:03)
[2024-06-08] MEDS: ATORVASTATIN 20 MG TAB PO SCH (10:04)
[2024-06-08] MEDS: LISINOPRIL 20 MG TAB PO SCH (10:04)
[2024-06-08] MEDS: SPIRONOLACTONE 25 MG TAB PO SCH (10:04)
[2024-06-08] MEDS: CLOPIDOGREL BISULFATE 75 MG TAB PO SCH (10:04)
[2024-06-08] MEDS: NICOTINE 7MG/24HR TOPICAL PATCH TD SCH (10:05)
[2024-06-08] MEDS: cefTRIAXone 1GM/50ML D5W 50 ML IV SCH (12:35)
[2024-06-08 19:08] LABS: Urine Bacteria None Seen /hpf (None Seen)
[2024-06-08 19:14] LABS: Urine Blood Negative /uL (Negative); Urine Clarity Clear (Clear); Urine Color Colorless (Yellow); Urine Protein, UAD Negative (Negative); Urine Specific Gravity 1.008 (1.001-1.035); Urine Urobilinogen Normal (Negative); Urine WBC 1 /hpf (0 - 3); Urine pH 6.5 (5.0-9.0)
[2024-06-09] VITALS (10 sets, daily range): BP systolic 117–134; BP diastolic 76–96; PULSE 56–89; RESP 18–20; TEMP 97.6–98; O2SAT 93–100
[2024-06-09 07:39] LABS: Anion Gap 8 (5-15); Carbon Dioxide 32 mmol/L (20-31); Chloride 100 mmol/L (98-107); Potassium 3.6 mmol/L (3.5-5.1); Sodium 140 mmol/L (136-145)
[2024-06-09 07:41] LABS: Calcium 9.8 mg/dL (8.7-10.4)
[2024-06-09 07:44] LABS: Basophils # (auto) 0 10 ^3/uL (0-0.2); Basophils % (auto) 0.5 % (0.0-2.0); Eosinophils # (auto) 0.1 10 ^3/uL (0-0.8); Eosinophils % (auto) 1.4 % (0.0-7.0); Hematocrit 44.4 % (41.0-53.0); Hemoglobin 15.4 g/dL (13.5-17.5); Lymphocytes # (auto) 1.8 10 ^3/uL (0.4-5.4); Lymphocytes % (auto) 20.9 % (10.0-50.0); Mean Corpuscular Hemoglobin 32.5 pg (28.0-32.0); Mean Corpuscular Hgb Conc. 34.7 g/dL (32.0-36.0); Mean Corpuscular Volume 93.5 fL (80.0-100.0); Monocytes # (auto) 0.6 10 ^3/uL (0-1.3); Monocytes % (auto) 6.7 % (0.0-12.0); Neutrophils % (auto) 70.5 % (37.0-80.0); Nucleated Red Blood Cells % 0.2 %; Platelet Count (auto) 204 10^3/uL (140-450); Red Blood Cells 4.75 10^6/uL (4.5-5.90); Red Cell Distribution Width 14.2 % (11.8-14.3); White Blood Cell 8.6 10^3/uL (4.4-10.8)
[2024-06-09 07:45] LABS: BUN/Creatinine Ratio 22.5 (10.0-20.0); Blood Urea Nitrogen 25 mg/dL (9-23); Glucose 90 mg/dL (74-106)
[2024-06-10] VITALS (8 sets, daily range): BP systolic 100–141; BP diastolic 58–88; PULSE 60–82; RESP 16–20; TEMP 97.7–98.9; O2SAT 94–100
[2024-06-10 07:06] LABS: Basophils # (auto) 0 10 ^3/uL (0-0.2); Basophils % (auto) 0.6 % (0.0-2.0); Calcium 9.8 mg/dL (8.7-10.4); Chloride 96 mmol/L (98-107); Eosinophils # (auto) 0.2 10 ^3/uL (0-0.8); Eosinophils % (auto) 3.1 % (0.0-7.0); Hematocrit 47.8 % (41.0-53.0); Hemoglobin 16.4 g/dL (13.5-17.5); Lymphocytes # (auto) 1.8 10 ^3/uL (0.4-5.4); Mean Corpuscular Hemoglobin 32.1 pg (28.0-32.0); Mean Corpuscular Hgb Conc. 34.4 g/dL (32.0-36.0); Mean Corpuscular Volume 93.2 fL (80.0-100.0); Monocytes # (auto) 0.5 10 ^3/uL (0-1.3); Neutrophils # (auto) 4.1 10 ^3/uL (1.6-8.6); Neutrophils % (auto) 62.3 % (37.0-80.0); Nucleated Red Blood Cells % 0.2 %; Platelet Count (auto) 225 10^3/uL (140-450); Potassium 3.5 mmol/L (3.5-5.1); Red Blood Cells 5.13 10^6/uL (4.5-5.90); Sodium 137 mmol/L (136-145); White Blood Cell 6.6 10^3/uL (4.4-10.8)
[2024-06-10 07:07] LABS: Anion Gap 7 (5-15); Carbon Dioxide 34 mmol/L (20-31)
[2024-06-10 07:12] LABS: BUN/Creatinine Ratio 17.9 (10.0-20.0); Blood Urea Nitrogen 21 mg/dL (9-23); Glucose 128 mg/dL (74-106)
[2024-06-10] MEDS ORDERED: FURO1TAB31 PO (11:33)
[2024-06-10] MEDS ORDERED: EMPA1TAB PO (11:33)
[2024-06-10] MEDS ORDERED: ATOR20TA50 PO (11:33)
[2024-06-10] MEDS ORDERED: ASPI1TAB20 PO (11:33)
[2024-06-10] MEDS ORDERED: METO25TA93 PO (11:33)
[2024-06-10] MEDS ORDERED: POTA-220 PO (11:33)
[2024-06-10] MEDS ORDERED: SPIR25TA PO (11:33)
[2024-06-10] MEDS ORDERED: LISI10TA34 PO (11:33)
[2024-06-10] MEDS ORDERED: CLOP75TA70 PO (11:33)
== END 2024-06-10 13:50 | disposition home or self-care (01) | DRG 194 ==
LOC: ER 08:53 → EDBD 08:53 → TELE 15:31 → TELE-WESTW 22:52
PROVIDERS: ADMIT Internal Medicine; ATTEND Internal Medicine
DX: I11.0 Hypertensive heart disease with heart failure (principal); I21.A1 Myocardial infarction type 2; I42.9 Cardiomyopathy, unspecified; I50.23 Acute on chronic systolic (congestive) heart failure; F17.210 Nicotine dependence, cigarettes, uncomplicated; I25.10 Atherosclerotic heart disease of native coronary artery without angina pectoris; E66.9 Obesity, unspecified; F15.10 Other stimulant abuse, uncomplicated; I49.3 Ventricular premature depolarization; J44.1 Chronic obstructive pulmonary disease with (acute) exacerbation; Z79.899 Other long term (current) drug therapy; Z91.199 Patient's noncompliance with other medical treatment and regimen due to unspecified reason; Z59.02 Unsheltered homelessness; Z98.61 Coronary angioplasty status; Z82.49 Family history of ischemic heart disease and other diseases of the circulatory system; Z68.31 Body mass index [BMI] 31.0-31.9, adult
CPT/HCPCS: 36415; 71045; 71275; 80048; 80053; 80061; 80307; 81001; 82607; 83036; 83880; 84443; 84484; 85025; 93005; 94640; 99291; G0378